=== PATIENT | female | born 1945 | race Caucasian/White ===

== ENCOUNTER 2016-11-02 13:55 | Outpatient (CLI) | payer MEDICARE, BC ==
[2016-11-02 17:49] LABS: BILIRUBIN,URINE NEGATIVE (NEGATIVE); PH,URINE 5.5 PH (5.0-7.5)
[2016-11-02 17:57] LABS: UA w/ MICROSCOPIC CHARGE YES
[2016-11-02 18:25] LABS: UR CULTURE IF IND INDICATED
== END 2016-11-02 13:56 | disposition home or self-care (01) ==
LOC: LAB.F 13:55
PROVIDERS: ATTEND Nurse Practitioner Family
DX: N39.0 Urinary tract infection, site not specified (principal)
CPT/HCPCS: 81001; 81003; 87077; 87086

== ENCOUNTER 2017-06-26 14:24 | Outpatient (CLI) | payer MEDICARE, BC ==
[2017-06-26 18:11] LABS: T3 UPTAKE 42.6 % (32.0-48.4)
[2017-06-26 18:13] LABS: T4 (THYROXINE) 5.85 ug/dL (6.09-12.23)
[2017-06-26 18:16] LABS: THYROID STIMULATING HORMONE 1.18 uIU/mL (0.34-5.60)
[2017-06-26 18:18] LABS: FREE T4 (FREE THYROXINE) 0.77 ng/dL (0.58-1.64)
== END 2017-06-26 14:25 | disposition home or self-care (01) ==
LOC: LAB.F 14:24
PROVIDERS: ATTEND Nurse Practitioner Family
DX: E03.2 Hypothyroidism due to medicaments and other exogenous substances (principal); R53.83 Other fatigue
CPT/HCPCS: 36415; 84436; 84439; 84443; 84479; 84481; 84482; 86376; 86800

== ENCOUNTER 2018-01-14 13:23 | Outpatient (CLI) | payer MEDICARE, BC ==
[2018-01-14 17:59] LABS: BASOPHILS % (AUTO) 0.5 %; EOSINOPHILS % (AUTO) 0.4 %; HGB - HEMOGLOBIN 14.8 g/dL (12.0-16.0); LYMPHOCYTES # (AUTO) 0.8 10^3/uL (1.5-3.5); LYMPHOCYTES % (AUTO) 22.7 %; MEAN CORPUSCULAR HEMOGLOBIN 31.4 pg (27.0-31.0); MEAN CORPUSCULAR HGB CONC 34.5 g/dL (32.0-36.0); MEAN CORPUSCULAR VOLUME 90.9 fL (81.0-99.0); MEAN PLATELET VOLUME 7.5 fL (7.9-10.8); MONOCYTES # (AUTO) 0.3 10^3/uL (0.0-1.0); MONOCYTES % (AUTO) 8.1 %; NEUTROPHILS # (AUTO) 2.4 10^3/uL (1.5-6.6); NEUTROPHILS % (AUTO) 68.3 %; PLT - PLATELET COUNT 240 10^3/uL (130-450); RED BLOOD COUNT 4.71 10^6/uL (4.20-5.40); RED CELL DISTRIBUTION WIDTH 13.2 % (12.0-15.0); WHITE BLOOD COUNT 3.5 x10^3/uL (4.8-10.8)
[2018-01-14 18:15] LABS: ALBUMIN 4.2 g/dL (3.2-5.5); ALBUMIN/GLOBULIN RATIO 1.5 (1.0-2.2); CALCIUM 9.2 mg/dL (8.5-10.3); CREATININE 0.5 mg/dL (0.4-1.0)
== END 2018-01-14 13:24 | disposition home or self-care (01) ==
LOC: LAB.F 13:23
PROVIDERS: ATTEND Nurse Practitioner Family
DX: E55.9 Vitamin D deficiency, unspecified (principal); E78.5 Hyperlipidemia, unspecified
CPT/HCPCS: 36415; 80053; 82306; 82728; 85025; 85610

== ENCOUNTER 2018-01-23 14:25 | Outpatient (CLI) | payer MEDICARE, BC ==
--- NOTE | 2018-01-23 16:24 | Ultrasound Report ---
Reason: ONSET POST MENOPAUSAL BLEEDING Procedure Date: 01/23/2018 Accession Number: [id number] / [id number] Procedure: US - Pelvic w/Transvaginal CPT Code: FULL RESULT: EXAM: PELVIC ULTRASOUND EXAM DATE: 01/23/2018 03:43 PM. CLINICAL HISTORY: Onset postmenopausal bleeding. COMPARISON: None. TECHNIQUE: Realtime transabdominal pelvic scan performed to identify the uterus and adnexa and as an overview of other pelvic structures, followed by transvaginal scan to provide greater detail of the uterus and adnexa, with static image documentation. FINDINGS: Uterus: 7.5 x 3.7 x 2.4 cm, volume 35 cc. Anteverted position. Normal overall size and echotexture. Masses: None. Endometrium: Maximally 4.5 mm. Top normal for thickness. Cervix: Unremarkable aside from nabothian cysts. The ovaries were not seen bilaterally in either transvaginal or transabdominal fashion. Free Fluid: None. Other: None. IMPRESSION: Thickness and appearance of the endometrium are within the upper limits of normal for the postmenopausal state. No focal lesion is detected. RADIA
== END 2018-01-23 14:26 | disposition home or self-care (01) ==
LOC: DI 14:25
PROVIDERS: ATTEND Nurse Practitioner Family
DX: N95.0 Postmenopausal bleeding (principal)
CPT/HCPCS: 76830; 76856

== ENCOUNTER 2018-04-26 13:08 | Outpatient (CLI) | payer MEDICARE, BC ==
--- NOTE | 2018-04-28 00:57 | XRAY Report ---
Reason: M54.16 Procedure Date: 04/26/2018 Accession Number: [id number] / [id number] Procedure: XR - Thoracic Spine 2 View CPT Code: FULL RESULT: EXAM: THORACIC SPINE RADIOGRAPHY EXAM DATE: 04/26/2018 02:07 PM. CLINICAL HISTORY: Pain radiating down left side. COMPARISON: None. TECHNIQUE: 2 views. FINDINGS: Alignment: Normal. No spondylolisthesis or scoliosis. Bones: No fractures or bone lesions. Disks: Normal. Disk heights are maintained. Soft Tissues: Normal. The visualized lungs and cardiomediastinal silhouette are normal. IMPRESSION: Normal thoracic spine radiography. RADIA
--- NOTE | 2018-04-28 02:59 | XRAY Report ---
Reason: M54.16 Procedure Date: 04/26/2018 Accession Number: [id number] / [id number] Procedure: XR - Lumbar Spine 2 View CPT Code: FULL RESULT: EXAM: LUMBOSACRAL SPINE RADIOGRAPHY EXAM DATE: 04/26/2018 02:07 PM. CLINICAL HISTORY: Low back pain. COMPARISONS: None. TECHNIQUE: 2 views. FINDINGS: Alignment: Normal. No spondylolisthesis or scoliosis. Bones: Five [id number] lumbar vertebral bodies are present. No fractures or bone lesions. Degenerative Changes: Severe L4-L5 disk height loss. Mild to moderate disk level degenerative changes at L2-L3, L3-L4, and L5-S1. Soft Tissues: Right paravertebral surgical clips. The visualized bowel gas pattern is normal. IMPRESSION: Moderately advanced lumbar degenerative changes, worst at the L4-L5 level. RADIA
--- NOTE | 2018-04-28 03:03 | XRAY Report ---
Reason: M54.16 Procedure Date: 04/26/2018 Accession Number: [id number] / [id number] Procedure: XR - SI Joints CPT Code: FULL RESULT: EXAM: SACROILIAC JOINT RADIOGRAPHY EXAM DATE: 04/26/2018 02:07 PM. CLINICAL HISTORY: Low back pain radiating to left side. COMPARISON: LUMBAR SPINE 2 VIEW 04/26/2018 1:34 PM. TECHNIQUE: 3 views. FINDINGS: Bones: Normal. No fracture or bone lesion. Joints: Mild bilateral sacroiliac degenerative changes. Soft Tissues: Normal. IMPRESSION: Mild bilateral sacroiliac degenerative changes. RADIA
--- NOTE | 2018-04-28 08:31 | XRAY Report ---
Reason: Lumbar radiculopathy Procedure Date: 04/26/2018 Accession Number: [id number] / [id number] Procedure: XR - Cervical Spine 2 View CPT Code: FULL RESULT: EXAM: CERVICAL SPINE RADIOGRAPHY EXAM DATE: 04/26/2018 02:07 PM. CLINICAL HISTORY: Chronic neck pain with head turning. COMPARISONS: None. TECHNIQUE: 3 views. FINDINGS: Alignment: Minimal broad-based levoconvex asymmetric cervical curve. The lateral view shows cervical lordosis straightening and reversal. Minimal to mild degenerative anterolisthesis in a stepwise fashion of C2 on C3, C3 on C4 and C4 on C5. Slight C5 on C6 retrolisthesis may also be present. Bones: Cervical vertebral body heights are maintained. No radiographic evidence of acute fracture. Disks: C2-C3 intervertebral disk space is grossly maintained. Minimal disk space narrowing at C3-C4. Moderate to severe degenerative disk disease at C5-C6. Mild to moderate disk degeneration with disk space narrowing at the remaining cervical levels. Multilevel hypertrophic degenerative marginal spurring, most severe at C5-C6 where there is also likely uncinate process spurring and hypertrophy. Facets: Minimal to mild mid to lower cervical facet arthropathy. Soft Tissues: No focal prevertebral soft tissue thickening. IMPRESSION: No acute fracture. Mild multilevel degenerative malalignment. Diffuse degenerative disk disease with marginal spurring, most severe at C5-C6. RADIA
== END 2018-04-26 13:09 | disposition home or self-care (01) ==
LOC: DI 13:08
PROVIDERS: ATTEND Nurse Practitioner Family
DX: M51.36 Other intervertebral disc degeneration, lumbar region (principal); M47.9 Spondylosis, unspecified; M47.898 Other spondylosis, sacral and sacrococcygeal region; M50.31 Other cervical disc degeneration, high cervical region
CPT/HCPCS: 72040; 72070; 72100; 72202

== ENCOUNTER 2018-06-13 13:28 | Outpatient (CLI) | payer MEDICARE, BC ==
--- NOTE | 2018-06-13 17:04 | DEXA Report ---
Reason: AGE-RELATED OSTEOPOROSIS W/O CURRENT PATHOLOGICAL Procedure Date: 06/13/2018 Accession Number: [id number] / [id number] Procedure: DEX - Dexa Spine and/or Hip CPT Code: FULL RESULT: EXAM: Dexa Spine and/or Hip DATE: 06/13/2018 1:52 PM CLINICAL HISTORY: AGE-RELATED OSTEOPOROSIS W/O CURRENT PATHOLOGICAL TECHNIQUE: Dual energy x-ray absorptiometry (DXA) was performed on a [employer] System. Regions measured are the AP Spine, femoral neck, and if needed forearm. COMPARISON: None. In accordance with the International Society for Clinical Densitometry (ISCD) guidelines, data from previous exams may be reanalyzed using current recommendations and techniques. This is done to allow a more accurate basis for comparison with the current study. FINDINGS: The data for the lumbar spine is as follows: BMD (g/cm/cm) T-SCORE Z-SCORE REGION L1 0.728 -3.3 -1.3 L2 0.791 -3.4 -1.4 L3 0.874 -2.7 -0.7 L4 0.940 -2.2 -0.1 TOTAL 0.832 -2.9 -0.8 NOTE: All evaluable vertebrae are used for classification The data for the hip is as follows: BMD (g/cm/cm) T-SCORE Z-SCORE REGION Neck 0.755 -2.0 0.0 TOTAL 0.675 -2.6 -0.8 NOTE: The femoral neck or total proximal femur, whichever is lowest, is used for classification. IMPRESSION: THE WHO CLASSIFICATION BASED ON THE INTERNATIONAL REFERENCE STANDARD IS OSTEOPOROSIS. THE FRACTURE RISK IS HIGH. RECOMMENDATION: Patients with diagnosis of osteoporosis or osteopenia should have regular bone mineral density assessment. For those eligible for Medicare, routine testing is allowed once every 2 years. Testing frequency can be increased for patients who have rapidly progressing disease or for those who are receiving medical therapy to restore bone mass. COMMENT: World Health Organization (WHO) definitions for osteoporosis and osteopenia: NORMAL BMD: T-score at -1.0 or higher, fracture risk is low OSTEOPENIA BMD: T-score between -1.0 and -2.5, fracture risk is increased. OSTEOPOROSIS BMD: T-score at -2.5 or lower, fracture risk is high. National Osteoporosis Foundation recommends: 1. Obtain adequate dietary calcium (at least 1200 mg per day) and vitamin D (400-800 international units per day). 2. Participate, as appropriate, in regular weightbearing and muscle-strengthening exercise. 3. Avoid tobacco use and reduce alcohol and caffeine intake. 4. For more detailed information see the website at www.NOF.org.
== END 2018-06-13 13:29 | disposition home or self-care (01) ==
LOC: DI 13:28
PROVIDERS: ATTEND Nurse Practitioner Family
DX: M81.0 Age-related osteoporosis without current pathological fracture (principal); Z79.890 Hormone replacement therapy
CPT/HCPCS: 77080

== ENCOUNTER 2018-07-09 10:51 | Outpatient (CLI) | payer MEDICARE, BC | END 2018-07-09 10:52 | disposition home or self-care (01) | LOC: LAB.F 10:51 | PROVIDERS: ATTEND Nurse Practitioner Family | DX: M81.0 Age-related osteoporosis without current pathological fracture (principal) | CPT/HCPCS: 81599; 82523; 82570 ==

== ENCOUNTER 2021-09-06 09:48 | Outpatient (CLI) | payer MEDICARE, OTHER ==
--- NOTE | 2021-09-06 21:05 | Ultrasound Report ---
PROCEDURE: Head or Neck Soft Tissue INDICATIONS: HYPERTHYROIDISM TECHNIQUE: Real-time scanning was performed of the thyroid gland, with image documentation. COMPARISON: None FINDINGS: Right: Thyroid lobe measures 5.5 x 2.9 x 1.9 cm, and is homogeneous in echotexture. Left: Thyroid lobe measures 5.6 x 2.6 x 1.8 cm, and is homogenous in echotexture. Isthmus: 7 mm thick. No nodules are identified. IMPRESSION: No thyroid nodules. Reviewed by: Rosangela Santoyo MD on 09/06/2021 9:03 PM PDT Approved by: Rosangela Santoyo MD on 09/06/2021 9:03 PM PDT Station ID: [id number]
== END 2021-09-06 09:49 | disposition home or self-care (01) ==
LOC: DI 09:48
PROVIDERS: ATTEND Nurse Practitioner Family
DX: E05.90 Thyrotoxicosis, unspecified without thyrotoxic crisis or storm (principal)

== ENCOUNTER 2021-10-25 10:36 | Outpatient (CLI) | payer MEDICARE, OTHER ==
[2021-10-25 15:33] LABS: THYROID STIMULATING HORMONE 32.01 uIU/mL (0.34-5.60)
[2021-10-25 15:35] LABS: FREE T4 (FREE THYROXINE) 0.58 ng/dL (0.58-1.64)
== END 2021-10-25 10:37 | disposition home or self-care (01) ==
LOC: LAB.S 10:36
PROVIDERS: ATTEND Internal Medicine Endocrinology, Diabetes & Metabolism
DX: E06.1 Subacute thyroiditis (principal)
CPT/HCPCS: 36415; 84439; 84443

== ENCOUNTER 2021-12-22 09:19 | Outpatient (CLI) | payer MEDICARE, OTHER ==
[2021-12-22 16:03] LABS: THYROID STIMULATING HORMONE 1.76 uIU/mL (0.34-5.60)
[2021-12-22 16:05] LABS: FREE T4 (FREE THYROXINE) 1.14 ng/dL (0.58-1.64)
== END 2021-12-22 09:20 | disposition home or self-care (01) ==
LOC: LAB.S 09:19
PROVIDERS: ATTEND Internal Medicine Endocrinology, Diabetes & Metabolism
DX: E06.1 Subacute thyroiditis (principal)
CPT/HCPCS: 36415; 84439; 84443

== ENCOUNTER 2022-02-09 10:46 | Outpatient (CLI) | payer MEDICARE, OTHER ==
[2022-02-09 15:44] LABS: THYROID STIMULATING HORMONE 1.9 uIU/mL (0.34-5.60)
[2022-02-09 15:45] LABS: FREE T4 (FREE THYROXINE) 1.13 ng/dL (0.58-1.64)
== END 2022-02-09 10:47 | disposition home or self-care (01) ==
LOC: LAB.S 10:46
PROVIDERS: ATTEND Internal Medicine Endocrinology, Diabetes & Metabolism
DX: E06.1 Subacute thyroiditis (principal)
CPT/HCPCS: 36415; 84439; 84443

== ENCOUNTER 2022-05-08 13:42 | Outpatient (CLI) | payer MEDICARE, OTHER ==
[2022-05-08 21:11] LABS: THYROID STIMULATING HORMONE 1.5 uIU/mL (0.34-5.60)
[2022-05-08 21:13] LABS: FREE T4 (FREE THYROXINE) 1.2 ng/dL (0.58-1.64)
== END 2022-05-08 13:43 | disposition home or self-care (01) ==
LOC: LAB.S 13:42
PROVIDERS: ATTEND Internal Medicine Endocrinology, Diabetes & Metabolism
DX: E06.1 Subacute thyroiditis (principal)
CPT/HCPCS: 36415; 84439; 84443

== ENCOUNTER 2022-06-13 16:00 | Outpatient (CLI) | payer MEDICARE, OTHER ==
--- NOTE | 2022-06-13 18:54 | XRAY Report ---
PROCEDURE: Chest 2 View X-Ray INDICATIONS: XRAY TECHNIQUE: 2 views of the chest were acquired. COMPARISON: None. FINDINGS: Surgical changes and devices: None. Lungs and pleura: No pleural effusions or pneumothorax. Lungs are clear. Mediastinum: Mediastinal contours are normal. Heart size is normal. Bones and chest wall: No suspicious bony abnormalities. Soft tissues appear unremarkable. IMPRESSION: No acute cardiopulmonary pathology. Reviewed by: Stef Sinha MD on 06/13/2022 5:53 PM AKDT Approved by: Stef Sinha MD on 06/13/2022 5:53 PM AKDT Station ID: [id number]
== END 2022-06-13 16:01 | disposition home or self-care (01) ==
LOC: DI.S 16:00
PROVIDERS: ATTEND Nurse Practitioner Family
DX: R05.9 Cough, unspecified (principal)

== ENCOUNTER 2022-10-09 09:03 | Outpatient (CLI) | payer MEDICARE, OTHER ==
[2022-10-09 15:28] LABS: THYROID STIMULATING HORMONE 1.47 uIU/mL (0.34-5.60)
[2022-10-09 15:30] LABS: FREE T4 (FREE THYROXINE) 1.18 ng/dL (0.58-1.64)
== END 2022-10-09 09:04 | disposition home or self-care (01) ==
LOC: LAB.S 09:03
PROVIDERS: ATTEND Internal Medicine Endocrinology, Diabetes & Metabolism
DX: E06.1 Subacute thyroiditis (principal)
CPT/HCPCS: 36415; 84439; 84443

== ENCOUNTER 2023-08-18 07:37 | Outpatient (CLI) | payer MEDICARE, OTHER | END 2023-08-18 23:59 | disposition left against medical advice (07) | LOC: EMS 07:37 | DX: R10.11 Right upper quadrant pain (principal); R61 Generalized hyperhidrosis ==